=== PATIENT | male | born 1970 | race Caucasian/White ===

== ENCOUNTER 2023-07-17 11:20 | Emergency (ER) | payer SELFPAY ==
--- NOTE | ~2023-07-17 | XR_ITS ---
EXAMINATION: 1. XR hand LT min 3V 2. XR wrist LT min 3V DATE: 07/17/2023 11:57 INDICATION: Left hand and wrist injury. TECHNIQUE: 3 views of left hand and 4 views of left wrist were obtained. COMPARISON: None. FINDINGS: LEFT WRIST: Bone alignment is normal. There is a comminuted fracture of distal radius with involvemen t of the distal articular surface. The main distal fracture fragment demonstrates 3 degrees dorsal ti lt. 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 LEFT HAND: There is an old healed fracture of fifth metacarpal. There is mild osteoarthritis of first metacarpophalangeal joint. IMPRESSION: 1. Age-indeterminate comminuted fracture of distal radius. Reviewed, dictated and finalized at location A. IMPRESSION: 1. Age-indeterminate comminuted fracture of distal radius.
[2023-07-17 11:25] VITALS: BP 129/108; PULSE 119; RESP 12; TEMP 36.8; O2SAT 94
--- NOTE | 2023-07-17 11:36 | ED.UPPEXIN ---
HPI - Extremity Injury (Upper) General Chief Complaint: Extremity Injury, Upper Stated Complaint: Left arm injury Time Seen by Provider: 07/17/23 11:23 Source: patient Mode of arrival: ambulatory Limitations: no limitations History of Present Illness HPI narrative: patient is a 52-year-old male that had an injury approximately 1 week ago when he was kicked by a cow and gait closed on his left hand and wrist causing pain swelling with decreased range of motion secondary to pain and inflammation, no other injuries. Patient has a brisk radial pulse on the left. MD complaint: injury to: left Onset (ago): day(s) Other Extremity Injury: Left: hand ( wrist and hand swollen) and wrist ( wrist and hand swollen) Handedness: right Severity: moderate Severity scale (1-10): 6 Relieving factors: none Context: direct blow Related Data Allergies Allergy/AdvReac Type Severity Reaction Status Date / Time No Known Allergies Allergy Verified 07/17/23 11:38 COUNTS INCLUDE 234 BEDS AT THE [facility] Past Medical History Medical History Patient denies medical problems Exam Const: General: healthy appearing and no acute distress Nutritional Appearance: well nourished Orientation/consciousness: patient oriented x3 Limitations: no limitations Neck: Neck: normal visual inspection Chest: Chest palpation & inspection: normal inspection of the chest and abnormal inspection of the chest Resp: Effort & Inspection: normal respiratory effort Auscultation: clear to auscultation bilaterally Cardio: Rate: regular rate Rhythm: regular rhythm GI: GI Palp: Yes Soft to palpation Auscultation: normal bowel sounds Skin: Other: contusions left hand with swelling Neuro: General: patient oriented x3 and moves all extremities Extrem: Other: left hand swelling with a brisk radial pulse on the left Course Course Emergency Course: x-rays performed and reviewed with patient which has a comminuted fracture of the distal radius on the left with the degrees of dorsal lift. Patient had a dose of 60mg IM Toradol and reassess pain level has improved. Spoke with some orthopedics on-call Dr. Jade which accepted the patient for consult in his office on Friday. Vital Signs Vital signs: Vital Signs Temperature 36.8 C 07/17/23 11:25 Pulse Rate 119 H 07/17/23 11:25 Respiratory Rate 12 07/17/23 11:25 Blood Pressure 129/108 H 07/17/23 11:25 Pulse Oximetry 94 07/17/23 11:25 Oxygen Delivery Room Air 07/17/23 11:25 Temperature 36.8 C 07/17/23 11:25 Pulse Rate 119 H 07/17/23 11:25 Respiratory Rate 12 07/17/23 11:25 Blood Pressure 129/108 H 07/17/23 11:25 Pulse Oximetry 94 07/17/23 11:25 Oxygen Delivery Room Air 07/17/23 11:25 Critical Care Time Critical Care Time Critical Care Time: No Discharge Plan Discharge Clinical Impression: Fracture of wrist Qualifiers: Encounter type: initial encounter Fracture type: closed Laterality: left Qualified Code(s): S62.102A - Fracture of unspecified carpal bone, left wrist, initial encounter for closed fracture Patient Disposition: Home, Self-Care Condition: Stable Instructions: Antibiotic Form, Wrist Fracture in Adults (ED), Splint Care (ED) Additional Instructions: information given for follow-up with Orthopedics Dr. Jade on Saturday July 22, 2023. Advised to take medicine as prescribed. Prescriptions: New naproxen 500 mg tablet 500 mg PO BID PRN (Reason: pain) Qty: 14 0RF Follow-up/Referrals: UNKNOWN,DOCTOR [Primary Care Provider] - Time of Disposition: 12:33
[2023-07-17 11:45] VITALS: BP 126/78; PULSE 92; RESP 16; O2SAT 98
[2023-07-17] MEDS: KETOROLAC (*BKC) 60 MG/2 ML VIAL IM (11:58)
[2023-07-17 12:31] VITALS: BP 136/90; PULSE 72; RESP 16; O2SAT 95
== END 2023-07-17 13:10 | disposition home or self-care (01) ==
PROVIDERS: Emergency Provider Emergency Medicine
DX: S52.592A Other fractures of lower end of left radius, initial encounter for closed fracture (principal); W55.22XA Struck by cow, initial encounter
CPT/HCPCS: 29125; 73110; 73130; 96372; 99284; A4565; J1885